=== PATIENT | male | born 1940 | race Two or more races ===

== ENCOUNTER 2019-03-08 14:56 | Outpatient (CLI) | payer OTHER | END 2019-03-08 14:58 | disposition home or self-care (01) | LOC: SONOGRAMA 14:56 | DX: E04.1 Nontoxic single thyroid nodule (principal); E78.00 Pure hypercholesterolemia, unspecified ==

== ENCOUNTER 2020-01-19 10:29 | Outpatient (CLI) | payer OTHER | END 2020-01-19 10:32 | disposition home or self-care (01) | LOC: SONOGRAMA 10:29 | PROVIDERS: ATTEND Internal Medicine | DX: N28.89 Other specified disorders of kidney and ureter (principal); N18.30 Chronic kidney disease, stage 3 unspecified ==

== ENCOUNTER 2020-05-02 08:19 | Emergency (ER) | payer OTHER ==
[~2020-05-02] VITALS: Ht 182.9 cm; Wt 90.7 kg
[2020-05-02] MEDS ORDERED: XANAX2 MG PO (08:40)
[2020-05-02] MEDS ORDERED: PROZAC10 MG (08:40)
[2020-05-02] MEDS ORDERED: ULTRAM50 MG PO (13:29)
[2020-05-02] MEDS ORDERED: CELEBREX200MG PO (13:29)
== END 2020-05-02 14:58 | disposition home or self-care (01) ==
LOC: ER 08:19
DX: S22.42XA Multiple fractures of ribs, left side, initial encounter for closed fracture (principal); S20.212A Contusion of left front wall of thorax, initial encounter; R55 Syncope and collapse; W01.198A Fall on same level from slipping, tripping and stumbling with subsequent striking against other object, initial encounter; Y93.89 Activity, other specified; Y92.012 Bathroom of single-family (private) house as the place of occurrence of the external cause; Y99.8 Other external cause status; Z03.818 Encounter for observation for suspected exposure to other biological agents ruled out

== ENCOUNTER → 2020-06-04 12:04 | Outpatient (CLI) | payer OTHER ==
[~2020-06-04 12:04] MED LIST: CELEBREX200MG PO; PROZAC10 MG; ULTRAM50 MG PO; XANAX2 MG PO
== END | disposition home or self-care (01) ==
LOC: LAB 12:04
PROVIDERS: ATTEND Urology
DX: R97.21 Rising PSA following treatment for malignant neoplasm of prostate (principal); C67.8 Malignant neoplasm of overlapping sites of bladder; N39.0 Urinary tract infection, site not specified

== ENCOUNTER 2020-06-14 08:23 | Outpatient (CLI) | payer OTHER | END 2020-06-14 08:31 | disposition home or self-care (01) | LOC: TOM 08:23 | PROVIDERS: ATTEND Urology | DX: C67.8 Malignant neoplasm of overlapping sites of bladder (principal); R10.84 Generalized abdominal pain; D09.8 Carcinoma in situ of other specified sites ==

== ENCOUNTER 2020-07-03 15:34 | Outpatient (CLI) | payer OTHER | END 2020-07-03 15:40 | disposition home or self-care (01) | LOC: RAD 15:34 | PROVIDERS: ATTEND Internal Medicine Pulmonary Disease | DX: J44.1 Chronic obstructive pulmonary disease with (acute) exacerbation (principal); Z87.891 Personal history of nicotine dependence ==

== ENCOUNTER 2020-07-11 11:45 | Outpatient (CLI) | payer OTHER | END 2020-07-11 11:46 | disposition home or self-care (01) | LOC: NUCLEAR 11:45 | PROVIDERS: ATTEND Internal Medicine Cardiovascular Disease | DX: I10 Essential (primary) hypertension (principal) ==

== ENCOUNTER → 2020-08-16 08:28 | Outpatient (CLI) | payer OTHER | END | disposition home or self-care (01) | LOC: NUCLEAR 08:28 | PROVIDERS: ATTEND Internal Medicine Cardiovascular Disease | DX: I20.8 Other forms of angina pectoris (principal) | CPT/HCPCS: 78452; 93017; A9500; J0153 ==

== ENCOUNTER 2020-09-05 09:53 | Outpatient (CLI) | payer OTHER | END 2020-09-05 09:58 | disposition home or self-care (01) | LOC: NUCLEAR 09:53 | PROVIDERS: ATTEND Internal Medicine Cardiovascular Disease | DX: I27.29 Other secondary pulmonary hypertension (principal); I10 Essential (primary) hypertension ==

== ENCOUNTER → 2020-09-13 | Outpatient (CLI) | payer OTHER | END | disposition home or self-care (01) | LOC: RAD 11:03 | PROVIDERS: ATTEND Internal Medicine Pulmonary Disease | DX: J90 Pleural effusion, not elsewhere classified (principal); J91.8 Pleural effusion in other conditions classified elsewhere; J44.1 Chronic obstructive pulmonary disease with (acute) exacerbation ==

== ENCOUNTER 2020-10-08 13:43 | Outpatient (CLI) | payer OTHER | END 2020-10-08 13:56 | disposition home or self-care (01) | LOC: RAD 13:43 | PROVIDERS: ATTEND Internal Medicine Pulmonary Disease | DX: J91.8 Pleural effusion in other conditions classified elsewhere (principal) ==

== ENCOUNTER 2021-01-01 15:34 | Outpatient (CLI) | payer OTHER | END 2021-01-01 15:40 | disposition home or self-care (01) | LOC: RAD 15:34 | PROVIDERS: ATTEND Internal Medicine | DX: R07.89 Other chest pain (principal) ==

== ENCOUNTER → 2021-06-20 | Outpatient (CLI) | payer OTHER | END | disposition home or self-care (01) | LOC: RAD 11:55 | PROVIDERS: ATTEND Internal Medicine Pulmonary Disease | DX: J44.9 Chronic obstructive pulmonary disease, unspecified (principal); J90 Pleural effusion, not elsewhere classified ==

== ENCOUNTER 2021-07-09 08:00 | Outpatient (CLI) | payer OTHER | END 2021-07-09 08:30 | disposition home or self-care (01) | LOC: PPH VACUNA 08:00 | PROVIDERS: ATTEND Emergency Medicine Pediatric Emergency Medicine | DX: Z23 Encounter for immunization (principal) ==

== ENCOUNTER 2021-11-04 12:04 | Outpatient (CLI) | payer OTHER | END 2021-11-04 12:06 | disposition home or self-care (01) | LOC: RAD 12:04 | PROVIDERS: ATTEND Internal Medicine Pulmonary Disease | DX: I10 Essential (primary) hypertension (principal); C67.9 Malignant neoplasm of bladder, unspecified; E78.00 Pure hypercholesterolemia, unspecified; J44.9 Chronic obstructive pulmonary disease, unspecified; J90 Pleural effusion, not elsewhere classified; J98.11 Atelectasis ==

== ENCOUNTER 2022-06-02 11:50 | Outpatient (CLI) | payer OTHER | END 2022-06-02 11:54 | disposition home or self-care (01) | LOC: SONOGRAMA 11:50 | PROVIDERS: ATTEND Internal Medicine | DX: N18.2 Chronic kidney disease, stage 2 (mild) (principal) ==

== ENCOUNTER 2022-11-17 12:42 | Outpatient (CLI) | payer OTHER | END 2022-11-17 12:47 | disposition home or self-care (01) | LOC: LAB 12:42 | PROVIDERS: ATTEND Specialist/Technologist, Other Nephrology | DX: E11.21 Type 2 diabetes mellitus with diabetic nephropathy (principal); N18.30 Chronic kidney disease, stage 3 unspecified; D63.1 Anemia in chronic kidney disease; N30.00 Acute cystitis without hematuria; E78.5 Hyperlipidemia, unspecified; E03.9 Hypothyroidism, unspecified; Z88.0 Allergy status to penicillin; Z88.2 Allergy status to sulfonamides ==

== ENCOUNTER 2023-04-14 13:44 | Outpatient (CLI) | payer OTHER | END 2023-04-14 13:49 | disposition home or self-care (01) | LOC: TOM 13:44 | PROVIDERS: ATTEND Internal Medicine Pulmonary Disease | DX: J44.9 Chronic obstructive pulmonary disease, unspecified (principal); I10 Essential (primary) hypertension; E78.00 Pure hypercholesterolemia, unspecified; J98.11 Atelectasis ==

== ENCOUNTER 2024-01-13 12:41 | Outpatient (CLI) | payer OTHER | END 2024-01-13 12:45 | disposition home or self-care (01) | LOC: RAD 12:41 | PROVIDERS: ATTEND Internal Medicine Pulmonary Disease | DX: J44.9 Chronic obstructive pulmonary disease, unspecified (principal) ==

== ENCOUNTER 2024-11-07 01:11 | Inpatient (IN) | payer OTHER ==
[~2024-11-07] VITALS: Ht 152.4 cm; Wt 122.5 kg
[2024-11-07] MEDS ORDERED: AMBIEN10 MG (01:17)
[2024-11-07] MEDS ORDERED: ATORVASTATIN CA80 MG (01:17)
[2024-11-07] MEDS ORDERED: TRELEGY ELLIPT1 EACH (01:17)
[2024-11-07] MEDS ORDERED: FLUOXETINE HCL20 MG (01:18)
[2024-11-07] MEDS ORDERED: ALPRAZOLAM XR0.5 MG (01:19)
[2024-11-07] MEDS ORDERED: ZETIA10 MG (01:19)
[2024-11-07] MEDS ORDERED: BUSPIRONE HCL5 MG (01:19)
[2024-11-07] MEDS ORDERED: METHYLPREDNISOLONE SOD SUCC 125 MG VIAL IV STA (01:20)
[2024-11-07 01:29] LABS: BICARBONATE 26.7 mmol/l (23-25); o2 21 %
[2024-11-07 01:30] LABS: ABG PH 7.201 (7.35-7.45); ABG PO2 56.6 mmHg (80-100)
[2024-11-07] MEDS ORDERED: MAGNESIUM SULFATE 1,000 MG in 0.9 % SODIUM CHLORIDE 50 ML IV ONE (01:30)
[2024-11-07] MEDS ORDERED: ALBUTEROL SULFATE 3 ML/2.5 MG AMPUL.NEB IH SCH ×2 (01:30→02:00)
[2024-11-07 01:56] LABS: BASO % 0.4 % (0.1-1.2); EOS # 0.10 (0.04-0.54); EOS % 0.5 % (0.7-7.0); LYMPH # 2.60 (1.18-3.74); LYMPH % 12.2 % (19.3-53.1); MEAN PLATELET VOLUME 9.60 fl (9.4-12.4); MONO # 1.18 (0.24-0.82); MONO % 5.6 % (4.7-12.5); NEUT # 17.16 (1.56-6.13); NEUT % 80.6 % (34.0-71.1); RED CELL DISTRIBUTION WIDTH 12.7 % (11.6-14.4)
[2024-11-07 02:04] LABS: INR 1.0
[2024-11-07 02:42] LABS: BUN CREA RATIO 13.0 (7.0-25.0); CREATININE SERUM 1.28 mg/dL (0.70-1.30); GFR 53.8; GLUCOSE FASTING 190.0 mg/dL (65-100); OSMOLALITY SERUM 280.0 MOSM/KG (275-295)
[2024-11-07 02:43] LABS: ALT/SGPT 37.0 U/L (12-78); AST/SGOT 19.0 U/L (15-37); BILIRUBIN TOTAL 0.47 mg/dL (0.3-1.2); GLOBULINA 3.8 G/DL (2.4-3.5)
[2024-11-07] MEDS ORDERED: AZITHROMYCIN 500 MG VIAL IV STA (02:50)
[2024-11-07 03:04] LABS: COVID-19 AG NEGATIVE (NEGATIVE)
[2024-11-07] MEDS ORDERED: METHYLPREDNISOLONE SOD SUCC 40 MG VIAL IV SCH (11:12)
[2024-11-07] MEDS ORDERED: SODIUM CHLORIDE 0.45 % 1,000 ML IV SCH (11:15)
[2024-11-07] MEDS ORDERED: levoFLOXacin IN DEXTROSE 5 % 150 ML IV SCH (12:00)
[2024-11-07] MEDS ORDERED: LEVALBUTEROL HCL 1.25 MG/3 ML SOLUTION IH SCH (13:00)
[2024-11-07] MEDS ORDERED: IPRATROPIUM BROMIDE 0.5 MG/2.5 ML AMPUL.NEB IH SCH (13:00)
[2024-11-07 13:17] LABS: BASO % 0.1 % (0.1-1.2); EOS # 0.00 (0.04-0.54); EOS % 0.0 % (0.7-7.0); LYMPH # 0.30 (1.18-3.74); LYMPH % 2.3 % (19.3-53.1); MEAN PLATELET VOLUME 9.70 fl (9.4-12.4); MONO # 0.12 (0.24-0.82); MONO % 0.9 % (4.7-12.5); NEUT # 12.52 (1.56-6.13); NEUT % 96.1 % (34.0-71.1); RED CELL DISTRIBUTION WIDTH 12.9 % (11.6-14.4)
[2024-11-07 14:37] VITALS: BP 117/66
[2024-11-07 15:04] LABS: ABG PH 7.380 (7.35-7.45); ABG PO2 84.8 mmHg (80-100); BICARBONATE 17.5 mmol/l (23-25); o2 21 %
[2024-11-07 16:01] VITALS: BP 119/70; O2SAT 97
[2024-11-07] MEDS ORDERED: BUSPIRONE HCL 5 MG TABLET PO SCH (17:00)
[2024-11-07] MEDS ORDERED: ZOLPIDEM TARTRATE 10 MG TABLET PO SCH (21:00)
[2024-11-08 00:37] VITALS: BP 95/55; O2SAT 99
[2024-11-08 06:52] LABS: BASO % 0.1 % (0.1-1.2); EOS # 0.00 (0.04-0.54); EOS % 0.0 % (0.7-7.0); LYMPH # 0.41 (1.18-3.74); LYMPH % 3.3 % (19.3-53.1); MEAN PLATELET VOLUME 10.20 fl (9.4-12.4); MONO # 0.29 (0.24-0.82); MONO % 2.3 % (4.7-12.5); NEUT # 11.62 (1.56-6.13); NEUT % 93.5 % (34.0-71.1); RED CELL DISTRIBUTION WIDTH 13.0 % (11.6-14.4)
[2024-11-08] MEDS ORDERED: PANTOPRAZOLE SODIUM 40 MG TABLET.DR PO SCH (07:30)
[2024-11-08 08:26] LABS: ALT/SGPT 33.0 U/L (12-78); AST/SGOT 17.0 U/L (15-37); BILIRUBIN TOTAL 0.33 mg/dL (0.3-1.2); BUN CREA RATIO 15.0 (7.0-25.0); CREATININE SERUM 1.16 mg/dL (0.70-1.30); GFR 60.28; GLOBULINA 3.0 G/DL (2.4-3.5); GLUCOSE FASTING 182.0 mg/dL (65-100); OSMOLALITY SERUM 278.0 MOSM/KG (275-295)
[2024-11-08 08:50] VITALS: BP 153/85; O2SAT 100
[2024-11-08] MEDS ORDERED: ENOXAPARIN SODIUM 40 MG/0.4 ML SYRINGE SUBCUTANEO SCH (09:00)
[2024-11-08] MEDS ORDERED: THIAMINE HCL 100 MG TABLET PO SCH (09:00)
[2024-11-08] MEDS ORDERED: FOLIC ACID 1 MG TABLET PO SCH (09:00)
[2024-11-08] MEDS ORDERED: FLUOXETINE HCL 20 MG CAPSULE PO SCH (09:00)
[2024-11-08] MEDS ORDERED: LOSARTAN POTASSIUM 50 MG TABLET PO SCH (09:00)
[2024-11-08] MEDS ORDERED: ATORVASTATIN CALCIUM 40 MG TABLET PO SCH (09:00)
[2024-11-08 17:02] LABS: URINE APPEARANCE Clear; URINE BILIRRUBIN Negative (NEGATIVE); URINE BLOOD Negative; URINE COLOR Yellow; URINE GLUCOSE Negative (NEGATIVE); URINE KETONE Negative (NEGATIVE); URINE LEUKOCYTE Negative; URINE NITRATE Negative; URINE PROTEIN Negative (NEGATIVE); URINE UROBILINOGEN 0.2 E.U./dl
[2024-11-08 17:03] LABS: URINE BACTERIA 4.7 uL (0.0-1933); URINE EPITHELIAL CELLS 3.6 uL (0.0-38.8); URINE WBC 3.9 uL (0.0-23.2)
[2024-11-08 17:04] LABS: URINE CAST 0.14 uL (0.0-1.40); URINE RBC 0.7 uL (0.0-20.8)
[2024-11-08 18:29] VITALS: BP 109/66
[2024-11-09 01:17] VITALS: BP 143/76; O2SAT 98
[2024-11-09 07:17] LABS: BASO % 0.1 % (0.1-1.2); EOS # 0.00 (0.04-0.54); EOS % 0.0 % (0.7-7.0); LYMPH # 0.32 (1.18-3.74); LYMPH % 2.6 % (19.3-53.1); MEAN PLATELET VOLUME 10.20 fl (9.4-12.4); MONO # 0.31 (0.24-0.82); MONO % 2.5 % (4.7-12.5); NEUT # 11.76 (1.56-6.13); NEUT % 94.1 % (34.0-71.1); RED CELL DISTRIBUTION WIDTH 12.9 % (11.6-14.4)
[2024-11-09 08:23] VITALS: BP 137/77; BP 173/69; O2SAT 95; O2SAT 98
[2024-11-09] MEDS ORDERED: FLUOXETINE HCL PO SCH (09:00)
[2024-11-09 09:04] LABS: MYCOPLASMA PNEUMONIAE IGM REACTIVE (NO REACTIVE)
[2024-11-09 18:46] VITALS: BP 137/78
[2024-11-10 00:45] VITALS: BP 102/71
[2024-11-10 01:20] VITALS: BP 156/85
[2024-11-10 06:50] LABS: BASO % 0.0 % (0.1-1.2); EOS # 0.00 (0.04-0.54); EOS % 0.0 % (0.7-7.0); LYMPH # 0.44 (1.18-3.74); LYMPH % 4.4 % (19.3-53.1); MEAN PLATELET VOLUME 10.50 fl (9.4-12.4); MONO # 0.55 (0.24-0.82); MONO % 5.5 % (4.7-12.5); NEUT # 8.86 (1.56-6.13); NEUT % 89.4 % (34.0-71.1); RED CELL DISTRIBUTION WIDTH 12.7 % (11.6-14.4)
[2024-11-10 07:21] LABS: BUN CREA RATIO 14.0 (7.0-25.0); CREATININE SERUM 1.32 mg/dL (0.70-1.30); GFR 51.93; OSMOLALITY SERUM 281.0 MOSM/KG (275-295)
[2024-11-10 07:23] LABS: GLUCOSE FASTING 201.0 mg/dL (65-100)
[2024-11-10 08:58] VITALS: BP 155/90; O2SAT 98
[2024-11-10] MEDS ORDERED: LEVALBUTEROL HCL 1.25 MG/3 ML SOLUTION IH SCH ×2 (12:00→14:00)
[2024-11-10] MEDS ORDERED: IPRATROPIUM BROMIDE 0.5 MG/2.5 ML AMPUL.NEB IH SCH (12:00)
[2024-11-10 16:56] VITALS: BP 161/92; O2SAT 99
[2024-11-10] MEDS ORDERED: METHYLPREDNISOLONE SOD SUCC 40 MG VIAL IV SCH (17:00)
[2024-11-10 17:52] LABS: ABG PH 7.426 (7.35-7.45); ABG PO2 82.3 mmHg (80-100); BICARBONATE 23.0 mmol/l (23-25); o2 21 %
[2024-11-11 01:11] VITALS: BP 145/81; O2SAT 99
[2024-11-11] MEDS ORDERED: LORazepam 2 MG/ML VIAL IV ONE (03:30)
[2024-11-11 06:24] LABS: BASO % 0.1 % (0.1-1.2); EOS # 0.00 (0.04-0.54); EOS % 0.0 % (0.7-7.0); LYMPH # 0.40 (1.18-3.74); LYMPH % 4.5 % (19.3-53.1); MEAN PLATELET VOLUME 10.30 fl (9.4-12.4); MONO # 0.45 (0.24-0.82); MONO % 5.1 % (4.7-12.5); NEUT # 7.97 (1.56-6.13); NEUT % 89.6 % (34.0-71.1); RED CELL DISTRIBUTION WIDTH 12.8 % (11.6-14.4)
[2024-11-11 06:40] LABS: BUN CREA RATIO 16.0 (7.0-25.0); CREATININE SERUM 1.16 mg/dL (0.70-1.30); GFR 60.28; GLUCOSE FASTING 182.0 mg/dL (65-100); OSMOLALITY SERUM 281.0 MOSM/KG (275-295)
[2024-11-11 09:31] VITALS: BP 128/67; O2SAT 97
== END 2024-11-11 12:32 | disposition home or self-care (01) | DRG 190 ==
LOC: ER 01:11 → MEDI 11:48 → MEDJ 11-08 10:58
PROVIDERS: General Practice; Internal Medicine; Internal Medicine Infectious Disease; ADMIT Internal Medicine; ATTEND Internal Medicine
PROC: BB24YZZ Computerized Tomography (CT Scan) of Bilateral Lungs using Other Contrast (ICD-10-PCS; principal; 2024-11-07)
PROC: B246ZZZ Ultrasonography of Right and Left Heart (ICD-10-PCS; 2024-11-07)
PROC: 4A12X4Z Monitoring of Cardiac Electrical Activity, External Approach (ICD-10-PCS; 2024-11-07)
PROC: 3E0F7GC Introduction of Other Therapeutic Substance into Respiratory Tract, Via Natural or Artificial Opening (ICD-10-PCS; 2024-11-07)
PROC: 8E0ZXY6 Isolation (ICD-10-PCS; 2024-11-09)
DX: J44.1 Chronic obstructive pulmonary disease with (acute) exacerbation (principal); J15.7 Pneumonia due to Mycoplasma pneumoniae; F41.0 Panic disorder [episodic paroxysmal anxiety]; F10.21 Alcohol dependence, in remission; D72.829 Elevated white blood cell count, unspecified; E78.5 Hyperlipidemia, unspecified; Z88.0 Allergy status to penicillin; Z88.2 Allergy status to sulfonamides

== ENCOUNTER 2024-11-13 10:49 | Emergency (ER) | payer OTHER ==
[~2024-11-13] VITALS: Ht 182.9 cm; Wt 94.3 kg
[~2024-11-13 10:49] MED LIST changes: +ALPRAZOLAM XR0.5 MG; +AMBIEN10 MG; +ATORVASTATIN CA80 MG; +BUSPIRONE HCL5 MG; +FLUOXETINE HCL20 MG; +TRELEGY ELLIPT1 EACH; +ZETIA10 MG
[2024-11-13] MEDS ORDERED: THIAMINE HCL100 MG PO (11:28)
[2024-11-13] MEDS ORDERED: FOLIC ACID0.8 M1 PO (11:28)
[2024-11-13] MEDS ORDERED: ATIVAN1 M1 PO (11:29)
== END 2024-11-13 12:15 | disposition home or self-care (01) ==
LOC: ER 10:54
DX: F41.9 Anxiety disorder, unspecified (principal); G47.00 Insomnia, unspecified; Z88.0 Allergy status to penicillin; Z88.2 Allergy status to sulfonamides

== ENCOUNTER 2025-01-03 14:16 | Outpatient (CLI) | payer OTHER ==
[~2025-01-03 14:16] MED LIST changes: +ATIVAN1 M1 PO; +FOLIC ACID0.8 M1 PO; +THIAMINE HCL100 MG PO
== END 2025-01-03 14:18 | disposition home or self-care (01) ==
LOC: SONOGRAMA 14:16
PROVIDERS: ATTEND Specialist/Technologist, Other Nephrology
DX: R10.9 Unspecified abdominal pain (principal); N18.30 Chronic kidney disease, stage 3 unspecified; R31.9 Hematuria, unspecified

== ENCOUNTER 2025-02-03 14:43 | Outpatient (CLI) | payer OTHER | END 2025-02-03 14:50 | disposition home or self-care (01) | LOC: RAD 14:43 | DX: M25.512 Pain in left shoulder (principal) ==